=== PATIENT | female | born 1995 | race Caucasian/White ===

== ENCOUNTER 2022-03-20 02:21 | Emergency (ER) | payer BC, SELFPAY ==
[2022-03-20] VITALS (22 sets, daily range): BP systolic 97–147; BP diastolic 61–96; PULSE 63–90; RESP 13–26; TEMP 36.5–36.9; O2SAT 98–100
--- NOTE | ~2022-03-20 | XR_ITS ---
EXAMINATION: XR chest 2V DATE: 03/20/2022 03:28 INDICATION: Chest pain. TECHNIQUE: Frontal and lateral views of the chest were obtained. COMPARISON: None. FINDINGS: The chest demonstrates clear lungs without pneumonia, pleural effusion, or pneumothorax. Th e heart size is normal. IMPRESSION: 1. No acute cardiopulmonary disease. Reviewed, dictated and finalized at location A. AND CHEMICAL COORDINATOR
--- NOTE | 2022-03-20 02:27 | ECG_ITS ---
Measurements Intervals [place] Rate: 83 P: 50 AR: 123 QRS: 52 QRSD: 84 T: 42 QT: 348 QTc: 410 Interpretive Statements SINUS RHYTHM WITH SINUS ARRHYTHMIA INCOMPLETE RIGHT BUNDLE BRANCH BLOCK BORDERLINE ST ABNORMALITY- ANTEROLAT/INF LEADS BASELINE ARTIFACT- V3-V4 BORDERLINE ECG NO PREVIOUS ECG AVAILABLE FOR COMPARISON Electronically Signed On 03-20-2022 6:34:13 FRONT LINE SUPERVISOR by Alex Roman D.O.
[2022-03-20 02:51] LABS: Basophils Percent Auto 0.4 % (0.2-1.2); Eosinophils Absolute Auto 0.2 K/mm3 (0-0.3); Eosinophils Percent Auto 2.1 % (0-4.4); Hematocrit 39.3 % (37.0-47.0); Hemoglobin 13.3 g/dL (12.0-15.0); Immature Granulocyte Absolute 0.01 K/mm3 (0.00-0.031); Immature Granulocyte Percent A 0.1 % (0-0.5); Lymphocytes Percent Auto 32.7 % (18.3-44.2); Mean Corpuscular HGB Conc 33.8 g/dl (32-36); Mean Corpuscular Hemoglobin 31.7 pg (26-34); Mean Corpuscular Volume 93.6 fl (80-100); Mean Platelet Volume 10.2 fl (7.4-10.4); Monocytes Absolute Auto 0.5 K/mm3 (0.1-0.6); Monocytes Percent Auto 7.7 % (2.6-8.5); Platelet Count Result 292 k/mm3 (150-375); Red Cell Distribution Width 11.9 % (11.5-14.5)
[2022-03-20 03:01] LABS: Alanine Aminotransferase 18 U/L (6-35); Albumin Level 4.5 g/dL (3.5-5.1); Alkaline Phosphatase 57 U/L (38-126); Anion Gap 11 mmol/L (8-16); Aspartate Amino Transferase 33 U/L (14-36); Bilirubin,Total 0.3 mg/dL (0.2-1.3); Blood Urea Nitrogen 13 mg/dL (7-17); Calcium 9.2 mg/dL (8.4-10.2); Carbon Dioxide 26 mmol/L (22-30); Chloride 103 mmol/L (98-107); Estimated CRCL calculation 75 ml/min; Estimated Glomerular Filt Rate > 60; Glucose 109 mg/dL (65-110); Lipase 71 U/L (23-300); Potassium 3.3 mmol/L (3.4-5.0); Sodium 140 mmol/L (137-145)
--- NOTE | 2022-03-20 03:01 | PC.NURSE ---
Report received from MARINA Grullon. Assumed care of patient at this time.
[2022-03-20 03:12] LABS: INR 1.1; Prothrombin Time 14.1 Seconds (11.1-14.7)
[2022-03-20 03:13] LABS: Partial Thromboplastin Time 27.8 SECONDS (22.3-36.8); Troponin I < 0.012 ng/mL (0.000-0.034)
--- NOTE | 2022-03-20 03:26 | PC.NURSE ---
Patient in xray at this time.
--- NOTE | 2022-03-20 03:39 | ED.CHESTPAIN ---
HPI - Chest Pain General Chief Complaint: Chest Pain Stated Complaint: Chest pain Time Seen by Provider: 03/20/22 02:38 Source: patient and RN notes reviewed Mode of arrival: ambulatory Limitations: no limitations History of Present Illness HPI narrative: THis is a 27 year old female who presents for evaluation of chest pain. She states she woke up from her sleep with midsternal chest pain that she states radiated to her head. She told triage that she has chest pain with swallowing. She denies associated nausea, vomiting, cough, diaphoresis or sob. She denies fever or chills. She states she went to bed without any complaints. She has not taken any medication for her symptoms and her pain has improved. Related Data Home Medications Medication Instructions Recorded Confirmed sertraline 50 mg tablet mg 03/20/22 Allergies Allergy/AdvReac Type Severity Reaction Status Date / Time No Known Allergies Allergy Verified 03/20/22 04:29 Review of Systems Review of Systems: CONSTITUTIONAL: Denies fever, chills, or sweats. EYES: Denies visual changes, redness, or discharge. ENT: Denies rhinorrhea, congestion, sore throat, or otalgia. CARDIOVASCULAR: Denies palpitations, or edema. RESPIRATORY: Denies cough or dyspnea. GASTROINTESTINAL: Denies abdominal pain, nausea, vomiting, or diarrhea. GENITOURINARY: Denies dysuria or hematuria. SKIN: Denies rash or itching. MUSCULOSKELETAL: Denies back pain, joint pain, or myalgia. NEUROLOGIC: Denies headache, numbness, or weakness. PSYCHIATRIC: Denies anxiety or depression. PMFSH Past Medical History Medical History (Updated 03/20/22 @ 07:15 by Sheela Philippe MD) Patient denies medical problems Surgical History Surgical History (Updated 03/20/22 @ 03:46 by Sheela Philippe MD) No pertinent past surgical history Social History Social History (Updated 03/20/22 @ 03:47 by Sheela Philippe MD) Smoking status: Never smoker Exam Narrative: GENERAL: Well-appearing, well-nourished, and in no acute distress. HEAD: Normocephalic, atraumatic EYES: PERRLA and EOMI, conjunctiva clear without discharge THROAT:Mucous membranes moist, Oropharynx normal without erythema, exudate, peritonsillar swelling or fluctuance NECK: Supple, without lymphadenopathy or mass RESPIRATORY: No respiratory distress, Airway patent, Respirations non-labored, Clear to auscultation without rales, rhonchi or wheeze HEART: Regular rate and rhythm. No murmur heard. Normal peripheral pulses. ABDOMEN: Soft, nontender, nondistended, normal active bowel sounds. No masses. No rebound or guarding, No organomegaly. EXTREMITIES: No edema, normal strength with full range of motion. SKIN: Warm, dry, normal color without rash NEURO: Alert and oriented x3. CN 2-12 grossly intact. No focal deficits. PSYCH: Normal mood and affect. Course Reevaluation(s) Reevaluation #1: PAtient's pain resolved without any treatment. It appears to be non cardiac. I Discussed discharge plan and follow up . Date: 03/20/22 Time: 07:14 Vital Signs Vital signs: Vital Signs Temperature 98.4 F 03/20/22 02:27 Pulse Rate 90 03/20/22 02:27 Respiratory Rate 18 03/20/22 02:27 Blood Pressure 147/88 H 03/20/22 02:27 Pulse Oximetry 100 03/20/22 02:27 Oxygen Delivery Room Air 03/20/22 02:27 Temperature 97.7 F 03/20/22 04:30 Pulse Rate 70 03/20/22 06:30 Respiratory Rate 17 03/20/22 06:30 Blood Pressure 103/66 03/20/22 06:16 Pulse Oximetry 98 03/20/22 06:30 Oxygen Delivery Room Air 03/20/22 02:27 MDM - Chest Pain Lab Data Attestation: I reviewed the patient's lab results. Result diagrams: 03/20/22 02:46 03/20/22 02:46 Labs: Lab Results 03/20/22 03/20/22 03/20/22 Range/Units 02:46 02:46 02:46 WBC 7.0 (4.5-10.0) K/mm3 RBC 4.20 (4.2-5.4) M/mm3 Hgb 13.3 (12.0-15.0) g/dL Hct 39.3 (37.0-47.0) % MCV 93.6 (80-100) fl MCH 3
--- NOTE | 2022-03-20 04:33 | PC.NURSE ---
Patient declines toradol, states she feels better and her pain is only 1-2/10. ERP notified.
[2022-03-20 07:00] LABS: Troponin I < 0.012 ng/mL (0.000-0.034)
== END 2022-03-20 07:30 | disposition home or self-care (01) ==
PROVIDERS: Emergency Provider General Practice
DX: R07.89 Other chest pain (principal); I45.10 Unspecified right bundle-branch block; R94.31 Abnormal electrocardiogram [ECG] [EKG]
CPT/HCPCS: 36415; 71046; 80053; 83690; 84484; 85025; 85610; 85730; 93005; 99284

== ENCOUNTER 2023-04-07 15:30 | Observation (INO) | payer BC, SELFPAY ==
[2023-04-07] VITALS (74 sets, daily range): BP systolic 94–133; BP diastolic 56–104; PULSE 58–143; TEMP 36.6; O2SAT 80–100
[2023-04-07 16:07] LABS: Appearance Urine Cloudy (Clear); Bacteria Urine 3+ /hpf; Bilirubin Urine Negative (Negative); Blood Urine Negative (Negative); Color Urine Dark Yellow (Yellow); Glucose Urine UA Negative (Negative); Ketones Urine Trace mg/dL (Negative); Leukocyte Esterase Ur 2+ LEU/UL (Negative); Nitrate Urine Negative (Negative); Non Pathogenic Casts 0-2; Protein Urine 1+ mg/dL (Negative); RBC Urine 0-2 /hpf (0-2); Specific Grav Ur 1.029 (1.001-1.035); Squamous Epithelial Cell Urine Many /hpf (Few); WBC Urine 51-100 /hpf
[2023-04-07 16:14] LABS: Add Urine Microscopic? YES
[2023-04-07] MEDS: CEPHALEXIN 500 MG CAPSULE PO (16:58)
[2023-04-07] MEDS: TERBUTALINE SULFATE 1 MG/ML VIAL 0.25 MG SUB-Q (16:59)
--- NOTE | 2023-04-07 17:16 | OBADM ---
This patient, Sulema Garcia, admitted to the OB room [facility] for observation. Patient/family oriented to hospital policies and general routines including ID bracelet, bed and alarms, visiting hours, pain management, procedures, bathroom and other care routines, personal items, smoking policy, room service/diet, and visiting hours. Patient/Family are encouraged to report perceived risks to care and to ask questions if they do not understand what they are told or what they should do.
[2023-04-07] MEDS: NIFEdipine 10 MG CAPSULE PO (19:37)
--- NOTE | 2023-04-09 16:31 | PM.OBTRLD ---
OB - Triage/Final Diagnosis Visit Information Comments/Additional reasons for admission: I have assessed the risk for this patient, Sulema Garcia, and determined that she would benefit from observation care. Evaluation Laboratory results: Laboratory Tests 04/07/23 15:57 Urine Color Dark yellow Urine Appearance Cloudy H Urine pH 7.0 Ur Specific [place] 1.029 Urine Protein 1+ H Urine Glucose (UA) Negative Urine Ketones Trace H Ur Blood (Man) Negative Urine Nitrate Negative Urine Bilirubin Negative Urine Urobilinogen 1.0 Leukocyte Esterase Rfl 2+ H Urine RBC 0-2 Urine WBC 51-100 H Ur Squamous Epith Cells Many H Urine Bacteria 3+ H Urine Casts 0-2 Final Diagnosis (1) Abdominal pain affecting : Code(s): O26.899 - Other specified related conditions, unspecified trimester; R10.9 - Unspecified abdominal pain Status: Acute
== END 2023-04-07 22:25 | disposition home or self-care (01) ==
PROVIDERS: Admitting Provider Obstetrics & Gynecology; Visit Provider Obstetrics & Gynecology
DX: O26.899 Other specified pregnancy related conditions, unspecified trimester (principal); R10.9 Unspecified abdominal pain; Z3A.00 Weeks of gestation of pregnancy not specified
CPT/HCPCS: 81001; 87086; 87088; 96372; A9270; G0378; G0379; J3105

== ENCOUNTER 2023-04-11 07:32 | Inpatient (IN) | payer BC, SELFPAY ==
[2023-04-11] VITALS (205 sets, daily range): BP systolic 86–129; BP diastolic 49–90; PULSE 69–163; RESP 16–18; TEMP 36.4–37.4; O2SAT 84–100; BMI 29.3
--- NOTE | 2023-04-11 08:22 | LDADM ---
This patient, Sulema Garcia, was admitted to Labor/Delivery/Recovery 108 on 04/11/23 at 07:32. Plans for labor, pain management and were discussed with patient. Patient/family oriented to hospital policies and general routines including ID bracelet, bed and alarms, visiting hours, pain management, procedures, bathroom and other care routines, personal items, smoking policy, room service/diet and guest tray routines, infant security routines, and visiting hours. Patient/Family are encouraged to report perceived risks to care and to ask questions if they do not understand what they are told or what they should do. See OBIX for further documentation.
[2023-04-11] MEDS: AMPICILLIN 2 GM/NS 100 ML 2 GM/100 ML BAG IVPB (08:30)
[2023-04-11] MEDS: LACTATED RINGERS 1,000 ML 125 ML IV CONT ×3 (08:30→18:00)
[2023-04-11] MEDS: BETAMETHASONE SOD PHOS/ACETATE 30 MG/5 ML VIAL 12 MG IM (08:47)
[2023-04-11 08:59] LABS: Basophils Percent Auto 0.3 % (0.2-1.2); Eosinophils Absolute Auto 0.1 K/mm3 (0-0.3); Hemoglobin 11.5 g/dL (12.0-15.0); Immature Granulocyte Absolute 0.04 K/mm3 (0.00-0.031); Immature Granulocyte Percent A 0.4 % (0-0.5); Immature Platelet Fraction Pct 10.3 % (0.9-11.2); Lymphocytes Absolute Auto 1.38 K/mm3 (0.9-3.2); Lymphocytes Percent Auto 12.6 % (18.3-44.2); Mean Corpuscular HGB Conc 31.9 g/dl (32-36); Mean Corpuscular Hemoglobin 28.7 pg (26-34); Mean Corpuscular Volume 89.8 fl (80-100); Monocytes Absolute Auto 0.6 K/mm3 (0.1-0.6); Neutrophils Absolute Auto 8.8 K/mm3 (1.3-6.7); Neutrophils Percent Auto 80.7 % (45.5-73.1); Platelet Count Result 262 k/mm3 (150-375); Red Blood Count 4.01 M/mm3 (4.2-5.4); Red Cell Distribution Width 12.8 % (11.5-14.5); White Blood Count 10.9 K/mm3 (4.5-10.0)
--- NOTE | 2023-04-11 09:45 | WPDANESEPP ---
Anes - Eval Pre Procedure Procedure: labor pain management Date/Time: 04/11/23 09:45 Surgeon: Dash Preop Diagnosis: pain during labor Pre Op Diagnosis: contractions/leaking Patient Data Age: 28 Gender: F Height: 1.52 m Weight: 68.2 kg Last Vital Signs Pulse 101 H 04/11/23 09:33 BP 101/57 L 04/11/23 09:33 O2 Del Method Room Air 04/11/23 08:13 Allergies Allergy/AdvReac Type Severity Reaction Status Date / Time No Known Allergies Allergy Verified 03/28/23 15:27 Home Medications Medication Instructions Recorded Confirmed Type sertraline 50 mg tablet 25 mg PO DAILY 01/10/23 04/11/23 History vit no.133-ferrous 1 tablet PO DAILY 04/11/23 04/11/23 History fumarate 28 mg-folic acid 800 mcg tablet () Laboratory Tests 04/11/23 04/11/23 08:23 08:52 WBC 10.9 H K/mm3 (4.5-10.0) RBC 4.01 L M/mm3 (4.2-5.4) Hgb 11.5 L g/dL (12.0-15.0) Hct 36.0 L % (37.0-47.0) MCV 89.8 fl (80-100) MCH 28.7 pg (26-34) MCHC 31.9 L g/dl (32-36) RDW 12.8 % (11.5-14.5) Plt Count 262 k/mm3 (150-375) MPV 12.0 H fl (7.4-10.4) Immature Gran % (Auto) 0.4 % (0-0.5) Neut % (Auto) 80.7 H % (45.5-73.1) Lymph % (Auto) 12.6 L % (18.3-44.2) [place] % (Auto) 5.0 % (2.6-8.5) Eos % (Auto) 1.0 % (0-4.4) Baso % (Auto) 0.3 % (0.2-1.2) Lymph # (Auto) 1.38 K/mm3 (0.9-3.2) [place] # (Auto) 0.6 K/mm3 (0.1-0.6) Eos # (Auto) 0.1 K/mm3 (0-0.3) Baso # (Auto) 0.0 K/mm3 (0.0-0.1) Abs Immat Gran (auto) 0.04 H K/mm3 (0.00-0.031) Absolute Neuts (auto) 8.8 H K/mm3 (1.3-6.7) Absolute Nucleated RBC 0.0 K/mm3 (0.0-0.012) Nucleated RBC % 0.0 % (0.0-0.2) % Immature Plt Fraction 10.3 % (0.9-11.2) RPR Pending Blood Type O Positive Antibody Screen Negative Patient hx anesthesia problems: none Family hx anesthesia problems: none Results Review: All pre-operative results and documents have been reviewed as part of the pre-operative evaluation. FORMERLY [facility], [facility] Past Medical History Medical History Anxiety Patient denies medical problems Surgical History Surgical History No pertinent past surgical history Family History Family History Mother Bipolar 1 disorder Social History Social History Smoking status: Never smoker Second hand tobacco smoke exposure: No Alcohol intake: never Substance use: never Substance use type: does not use Lack of Transportation: No Lack of Food: Never True Current Housing: I Have Housing Concerned About Future Housing: No Difficulty Paying Gas/Electric Bills: No Difficulty Paying for Meds: No Currently Unemployed: No Education: High School Diploma/GED Difficulty w/ Childcare or Family Care: No Living arrangements: with family 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
[2023-04-11 11:29] LABS: HIV 1/2 Ab P24 Ag Result Negative (Negative)
--- NOTE | 2023-04-11 11:55 | PM.IMHP ---
H&P: HPI History of Present Illness Date/Time: 04/11/23 11:55 Chief Complaint: leakage of fluid Narrative: Sulema is a 28yo @ 35.1wks who presented to L&D with complaints of leakage of fluid since 636, clear in color. She has been having contractions on and off since this weekend. She reports good movement. No VB. No fever, chills. On arrival to L&D, she was found to be 3cm dilated and ana every 2-5 minutes. ROM + was positive. Her is complicated by: - Anxiety on zoloft - Right lateral inferior fibroid ~4.5cm -- ?has been getting serial growth scans Review of Systems Constitutional: Constitutional: Denies chills, Denies fever(s) and Denies headache(s) Eyes: Eyes: Denies change in vision ENT: Denies headache(s) Cardiovascular: Cardiovascular: Denies chest pain and Denies dyspnea Respiratory: Respiratory: Denies dyspnea Genitourinary: Genitourinary: Denies abnormal vaginal bleeding and Reports vaginal discharge Neurologic: Denies headache(s) Psychiatric: Psychiatric: Denies anxiety and Denies depression FORMERLY [facility] Past Medical History Medical History Anxiety Patient denies medical problems Surgical History Surgical History No pertinent past surgical history Family History Family History Mother Bipolar 1 disorder Social History Social History Smoking status: Never smoker Second hand tobacco smoke exposure: No Alcohol intake: never Substance use: never Substance use type: does not use Lack of Transportation: No Lack of Food: Never True Current Housing: I Have Housing Concerned About Future Housing: No Difficulty Paying Gas/Electric Bills: No Difficulty Paying for Meds: No Currently Unemployed: No Education: High School Diploma/GED Difficulty w/ Childcare or Family Care: No Living arrangements: with family 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 Gender identity (if verbalized by the patient): Female Sexual Orientation (if Verbalized by the Patient): Straight or Heterosexual Spiritual care concerns: No Meds Home Medications and Allergies Home Medications Medication Instructions Recorded Confirmed Type sertraline 50 mg tablet 25 mg PO DAILY 01/10/23 04/11/23 History vit no.133-ferrous 1 tablet PO DAILY 04/11/23 04/11/23 History fumarate 28 mg-folic acid 800 mcg tablet () Allergies Allergy/AdvReac Type Severity Reaction Status Date / Time No Known Allergies Allergy Verified 03/28/23 15:27 Vital Signs Vital Signs - 24 hr 04/11/23 08:25 04/11/23 08:30 04/11/23 08:51 Temperature Pulse Rate 96 90 89 Respiratory Rate Blood Pressure 121/83 114/74 116/79 Pulse Oximetry Oxygen Delivery 04/11/23 09:01 04/11/23 09:16 04/11/23 09:33 Temperature Pulse Rate 99 89 101 H Respiratory Rate Blood Pressure 116/84 102/68 101/57 L Pulse Oximetry Oxygen Delivery 04/11/23 09:46 04/11/23 09:50 04/11/23 09:51 Temperature 97.5 F L Pulse Rate 92 106 H Respiratory Rate 18 Blood Pressure 86/52 L 106/76 Pulse Oximetry 87 L Oxygen Delivery 04/11/23 09:54 04/11/23 09:59 04/11/23 08:13 Temperature Pulse Rate Respiratory Rate Blood Pressure Pulse Oximetry 84 L 96 Oxygen Delivery Room Air 04/11/23 10:02 04/11/23 10:04 04/11/23 10:07 Temperature Pulse Rate 93 90 Respiratory Rate Blood Pressure 111/69 120/73 Pulse Oximetry 96 Oxygen Delivery 04/11/23 10:09 04/11/23 10:10 04/11/23 10:12 Temperature Pulse Rate 91 97 Respiratory Rate Blood Pressure 112/70 119/69 Pulse Oximetry 99 Oxygen Delivery 04/11/23 10:13 04/11/23 10:14 1
--- NOTE | 2023-04-11 12:22 | WPDHPUPDATE1 ---
History and Physical Update Update Date/Time: 04/11/23 12:22 History and Physical has been reviewed, including an updated exam of the patient. There are NO changes in the patient's condition. Risks, benefits, and alternatives have been discussed and questions answered. Patient agrees to proceed with procedure.
[2023-04-11] MEDS: AMPICILLIN 1 GM/NS 50 ML 1 GM/50 ML BAG IVPB ×2 (12:35→16:40)
[2023-04-11 17:18] LABS: Rapid Plasma Reagin Non-Reactive (NonReactive)
[2023-04-11] MEDS: OXYTOCIN 30 UNITS/NS 500 ML 30 UNITS/500 ML BAG 6 UNITS IV CONT (19:38)
--- NOTE | 2023-04-11 20:56 | P.PCNOB_ITS ---
OB - Vaginal Delivery Note Procedure Delivery date: 04/11/23 Events: Premature Rupture of Membranes Delivery augmentation: Pitocin (when pushing only) Delivery monitor: External FHT and External Uterine Route of delivery: Laceration Description: Perineal - 2nd Degree Delivery repair: vicryl Specimen: Yes (placenta) Quantitative Blood Loss (ml): 300 Anesthesia type: Epidural Disposition: Floor Complications: No immediate complications [place] Baby Date of : 04/11/23 Time of : 20:31 Weeks of gestation at delivery: 35 (.1) Infant gender: Female Weight (pounds): 6 Weight (ounces): 6 presentation: vertex position: Other (direct OP) Placenta delivery description: Expressed Cord Vessel Description: 3 Vessels and Delayed Cord Clamping score one minute: 7 score five minutes: 9 Narrative: Sulema progressed to complete dilation and began pushing. Contractions were noted to be weak and therefore pitocin augmentation was started. She pushed for approximately 2-1/2 hours with good maternal effort. She delivered the head over intact perineum, direct OP. No nuchal cord was palpated. She easily delivered the 's shoulders and body without complication. The was immediately placed skin to skin. The pediatric team was present and stimulated and suctioned the baby's mouth and cry was heard. Delayed cord clamping was performed. The umbilical cord was then doubly clamped and cut. A segment of the cord was collected for cord gases. The remaining cord blood was collected for typing. With Pitocin running and gentle downward traction on the cord, the placenta delivered without complications. Bimanual massage was performed and good uterine tone with minimal bleeding was noted. She was examined and a second-degree perineal laceration was identified. It was repaired in the normal fashion using 2-0 Vicryl. Bimanual massage was once again performed and good uterine tone with minimal bleeding was noted. Her bladder was then drained via straight catheterization. Sponge, lap, instrument, and needle counts were correct at the end the procedure. Mom and baby were left bonding in the birthing suite in stable condition. [facility] Delivery Billing Delivery Delivery: Delivery Charge
[2023-04-11] MEDS: OXYTOCIN 30 UNITS/NS 500 ML 30 UNITS/500 ML BAG 125 UNITS IV CONT (21:07)
[2023-04-11] MEDS: IBUPROFEN 600 MG TABLET PO (21:56)
[2023-04-11] MEDS: BENZOCAINE 20% AER SPR (*SP) 56 GM CAN 1 SPRAY TOPICAL (21:57)
[2023-04-11] MEDS: WITCH HAZEL 40 PADS 1 PAD TOPICAL (21:57)
[2023-04-12] MEDS: IBUPROFEN 600 MG TABLET PO ×3 (05:15→17:15)
[2023-04-12] MEDS: ACETAMINOPHEN 325 MG TABLET 650 MG PO (05:15)
[2023-04-12 05:19] LABS: Hematocrit 28.7 % (37.0-47.0); Hemoglobin 9.3 g/dL (12.0-15.0)
--- NOTE | 2023-04-12 06:30 | PM.OBPNVD ---
OB - PN: Subj Subjective Date/time seen: 04/12/23 06:30 Narrative: PPD#1 Sulema reports doing well today. Her bleeding is adult care manager. Her pain is controlled. She is tolerating regular diet, voiding, passing gas, and ambulating without issues. She is breast feeding. OB - PN: Obj Data Labs 04/12/23 05:11 Labs: Laboratory Results - last 24 hr 04/11/23 04/11/23 04/11/23 08:23 08:52 09:26 WBC 10.9 H RBC 4.01 L Hgb 11.5 L Hct 36.0 L MCV 89.8 MCH 28.7 MCHC 31.9 L RDW 12.8 Plt Count 262 MPV 12.0 H Immature Gran % (Auto) 0.4 Neut % (Auto) 80.7 H Lymph % (Auto) 12.6 L [place] % (Auto) 5.0 Eos % (Auto) 1.0 Baso % (Auto) 0.3 Lymph # (Auto) 1.38 [place] # (Auto) 0.6 Eos # (Auto) 0.1 Baso # (Auto) 0.0 Abs Immat Gran (auto) 0.04 H Absolute Neuts (auto) 8.8 H Absolute Nucleated RBC 0.0 Nucleated RBC % 0.0 % Immature Plt Fraction 10.3 RPR Non-reactive HIV 1&2 Ab/P24 Ag 4thGn Negative Blood Type O Positive Antibody Screen Negative 04/12/23 05:11 WBC RBC Hgb 9.3 L Hct 28.7 L MCV MCH MCHC RDW Plt Count MPV Immature Gran % (Auto) Neut % (Auto) Lymph % (Auto) [place] % (Auto) Eos % (Auto) Baso % (Auto) Lymph # (Auto) [place] # (Auto) Eos # (Auto) Baso # (Auto) Abs Immat Gran (auto) Absolute Neuts (auto) Absolute Nucleated RBC Nucleated RBC % % Immature Plt Fraction RPR HIV 1&2 Ab/P24 Ag 4thGn Blood Type Antibody Screen OB - PN A/P Assessment and Plan (1) Normal vaginal delivery of first : Code(s): O80 - Encounter for full-term uncomplicated delivery Status: Acute Plan day: 1 Plan: routine care Time Spent With Patient Time: Total time spent is greater than 50% in coordination of care (as documented) at patient's floor/unit and/or counseling patient: Review of Systems Constitutional: Constitutional: Denies chills, Denies fever(s) and Denies headache(s) Eyes: Eyes: Denies change in vision ENT: Denies dizziness and Denies headache(s) Cardiovascular: Cardiovascular: Denies chest pain, Denies palpitations and Denies dyspnea Respiratory: Respiratory: Denies cough and Denies dyspnea Gastrointestinal: Gastrointestinal: Denies nausea and Denies vomiting Neurologic: Denies dizziness and Denies headache(s) Endocrine: Endocrine: Denies palpitations Exam Const: General: cooperative, healthy appearing, comfortable and no acute distress Orientation/consciousness: patient oriented x3 Resp: Effort & Inspection: normal respiratory effort Auscultation: clear to auscultation bilaterally Cardio: Rate: regular rate GI: Inspection: non-distended GI Palp: No abdominal tenderness and Yes Soft to palpation Auscultation: normal bowel sounds : Other: fundus firm Skin: General skin exam: normal color Neuro: General: patient oriented x3 Extrem: General: normal to inspection Psych: Appearance: grossly normal Affect: normal affect Attitude: cooperative
[2023-04-12 07:50] VITALS: BP 98/48; PULSE 78; RESP 16; TEMP 36.9; O2SAT 100
[2023-04-12] MEDS: POLYSACCHARIDE IRON COMPLEX 150 MG CAPSULE PO ×2 (11:48→17:15)
[2023-04-12] MEDS: SERTRALINE HCL 25 MG TABLET PO (11:48)
[2023-04-12] MEDS: MULTIVIT/MIN/PREN/FOL AC/IRON TABLET 1 TAB PO (11:48)
[2023-04-12] MEDS: DOCUSATE SODIUM 100 MG CAPSULE PO ×2 (11:48→17:15)
[2023-04-12 12:10] VITALS: BP 99/60; PULSE 82; RESP 16; TEMP 36.9; O2SAT 99
--- NOTE | 2023-04-12 12:27 | PC.NURSE ---
[id number] Re-introductions were made as we have previously met at the class, then consulted with patient to assess needs related to . Mother led the conversation with her?plans to feed?her infant, the?experience so far and is effectively pumping without pain as we speak. Encouraged understanding of the benefits of skin to skin (demonstrating unwrapping and placing upright on her chest), stimulating with massage touch, changing positions to encourage wakefulness, how to watch for early feeding cues, responsive feeding, feeding on demand (aiming for 8-12 times in 24 hours, about every 2-3 hours), milk production, building/maintaining a milk supply, duration of feeding, signs of adequate intake/output and how to record on the feeding sheet. Reviewed keeping hands, pump, clothing clean and dry that touch her breast. Mother voiced understanding of skin to skin, stimulating with massage touch, responsive feedings, talking to infant to encourage if it has been 2 -2.5 hours since the start of the last , to call if infant does not latch, or if there is discomfort with . Inpatient/outpatient resources provided with feeding sheet, name written on the communication board, and the mom/baby guide. Parents voiced understanding of information, demonstrated learning and will call if there is a request for assistance. Reported to the Primary RN.
--- NOTE | 2023-04-12 13:47 | WPDANLDPN2 ---
Anes-Prog Note L&D Date/Time: 04/12/23 13:47 Neuro status: Neuro function grossly intact. Vital Signs: Last Vital Signs Temp 36.9 C 04/12/23 07:50 Pulse 78 04/12/23 07:50 Resp 16 04/12/23 07:50 BP 98/48 L 04/12/23 07:50 Pulse Ox 100 04/12/23 07:50 O2 Del Method Room Air 04/11/23 08:13 Pain score (VAS): 0 I/O: Intake & Output 04/11/23 04/12/23 04/12/23 23:59 07:59 15:59 Intake Total 1500 500 Output Total 300 Balance 1200 500 Patient feedback: Patient satisfied with anesthetic care.
[2023-04-12 17:15] VITALS: BP 93/53; PULSE 80; RESP 16; TEMP 36.9; O2SAT 98
[2023-04-12 20:00] VITALS: BP 101/59; PULSE 71; RESP 16; TEMP 37; O2SAT 99
--- NOTE | 2023-04-13 07:45 | P.DS_ITS ---
DS: Admitting Diagnosis Discharge Date 04/13/23 Admitting Diagnosis premature rupture of membranes DS: Discharge Diagnosis Discharge Diagnosis (1) Normal vaginal delivery of first : Code(s): O80 - Encounter for full-term uncomplicated delivery Status: Acute OB - DS: Summary Hospital Course Hospital Course: 28-year-old presented at 35 weeks premature rupture of membranes. Patient's labor progressed and she had a normal spontaneous vaginal delivery. Patient's course was uncomplicated. She was discharged on day 2. OB Procedures : None OB Procedures Intrapartum: Spontaneous Vag Delivery OB Procedures: : None Peripartum Data Laceration Description: Perineal - 2nd Degree Status at Discharge Functional status at discharge: independent ambulation Overall status at discharge: patient is back to baseline Time Spent with Patient Time attestation: Total time spent providing and/or coordinating discharge services: Time spent: Less than 30 minutes Exam Const: General: comfortable and no acute distress Resp: Effort & Inspection: normal respiratory effort Auscultation: clear to auscultation bilaterally Cardio: Rate: regular rate GI: GI Palp: Yes Soft to palpation Auscultation: normal bowel sounds Other: Fundus firm below umbilicus Psych: Appearance: grossly normal Mental Status: mental status grossly normal Affect: normal affect DS: Data Data Completed and Pending Pending studies at discharge: Pending at discharge 04/11/23 20:42 Surgical [PTH] Routine Discharge Plan Discharge Discharging Clinician: Emigdio Green Patient Disposition: Home, Self-Care Activity: as tolerated and pelvic rest Diet: regular Patient Instructions: Antibiotic Form, Vaginal Delivery (DC) Stand Alone Forms: General Discharge Information Follow-up/Referrals: Augustina Bowling MD [Physician] - Discharge Medications: New acetaminophen 500 mg tablet 500 mg PO Q6H PRN (Reason: pain) Qty: 30 0RF ibuprofen 600 mg tablet 600 mg PO Q6H PRN (Reason: pain) Qty: 30 0RF Continued 28-800 mg-mcg Tablet 1 tablet PO DAILY sertraline 50 mg tablet 25 mg PO DAILY Date of admission: 04/11/23 07:32 Primary Care Provider: PHYSICIAN,ASSISTANT SOFTBALL COACH Admitting Provider: Augustina Bowling Attending physician on admission: Augustina Bowling Condition: Stable
[2023-04-13 09:06] VITALS: BP 104/54; PULSE 77; RESP 16; TEMP 36.7; O2SAT 97
--- NOTE | 2023-04-13 16:56 | PC.NURSE ---
1415 Introductions were made, then consulted with patient to assess needs related to . Mother led the conversation with her?plans to feed?her and the?experience so far. Encouraged understanding of the benefits of skin to skin (demonstrating unwrapping infant and placing upright on her chest), stimulating with massage touch, changing positions to encourage wakefulness, how to watch for early feeding cues, responsive feeding, feeding on demand (aiming for 8-12 times in 24 hours, about every 2-3 hours), milk production, building/maintaining a milk supply, duration of feeding, signs of adequate intake/output and how to record on the feeding sheet. Mother works well with her with encouragement and education. Reviewed positioning and ear, shoulder, hip alignment, supporting the breast to facilitate a deep latch, asymmetrical latch (off-center), leading with the chin with a big, open, wide gape and body close to mother. Infant latched optimally to both breasts in football position. Education given to the mother of how to visualize the suckling (with good rocking jaw motion), swallows (dropping of the lower jaw) and how to listen for drinking at the breast (the ka sound). was able to maintain latch without pain to mother protecting the nipple with optimal positioning and latching. Reviewed comfort measures of healing with a warm, wet washcloth to rinse breast, then leave open to air-dry, good handwashing when or touching the breast/nipples to prevent infection. Mother voiced understanding of skin to skin, stimulating with massage touch, responsive feedings, hand expressed colostrum, talking to to encourage if it has been 2 -2.5 hours since the start of the last , to call if does not latch, or if there is discomfort with . Resources used for education were facilitated with the mom and baby guide, Inpatient resources provided with business card, feeding sheet, name written on the communication board, and the mom/baby guide. Parents voiced understanding of information, demonstrated learning and will call if there is a request for assistance. Reported to the Primary RN.
--- NOTE | 2023-04-13 19:10 | PC.NURSE ---
Patient made a no care bed on 04/13/23 at 1910.
[2023-04-16 11:07] VITALS: BP 104/73; PULSE 68; RESP 18; TEMP 37; O2SAT 99
--- NOTE | 2023-04-16 14:00 | PC.NURSE ---
1150 Upon entering the room, mother was feeding infant in preparation for discharge. Mother led the conversation with her experience so far, plan to feed her , and her ability to independently latch optimally without discomfort. Reminded mother to use good handwashing technique to prevent infection. Mother is feeding appropriately for growth of and understands stimulating to eat if needed. Infant has had appropriate feedings in the last 24 hours meets the outcomes for weight, output, blood sugar and jaundice at this time. Encouraged parents to continue to feed baby frequently (approximately/at least every 2-3 hours), and utilize light properly until baby is seen by operator maintainer/doctor to assist with lowering bilirubin levels further. Mother states she is confident to continue effectively her infant at home, when to call for assistance, denies any additional assistance or education at this time. Reinforced understanding of milk production, transition of milk, signs of adequate intake, transition of stool, prevention/relief of engorgement, plugged ducts, mastitis, responsive watching for feeding cues, the different methods of stimulating to breastfeed 1-3 hours after the start of the last feeding, community resources, medication information reviewed per [facility] and when to call a provider using the resource of the mom and baby guide. Mother voiced understanding of the education shared. Reported to the Primary RN.
== END 2023-04-13 19:10 | disposition home or self-care (01) | DRG 805 ==
LOC: ANHOB2 04-13 19:04 → ANHLDR 04-16 08:01 → ANHOB2 04-16 08:01 → ANHOBPP 04-16 08:01
PROVIDERS: Admitting Provider Obstetrics & Gynecology; Visit Provider Student in an Organized Health Care Education/Training Program
DX: O42.013 Preterm premature rupture of membranes, onset of labor within 24 hours of rupture, third trimester (principal); O60.14X0 Preterm labor third trimester with preterm delivery third trimester, not applicable or unspecified; Z37.0 Single live birth; Z3A.35 35 weeks gestation of pregnancy; O70.1 Second degree perineal laceration during delivery; O99.344 Other mental disorders complicating childbirth; F41.9 Anxiety disorder, unspecified; O34.13 Maternal care for benign tumor of corpus uteri, third trimester; D25.9 Leiomyoma of uterus, unspecified
CPT/HCPCS: 36415; 84112; 85014; 85018; 85025; 85055; 86592; 86703; 86850; 86900; 86901; 88307; A9270; G0432; J0290; J0702; J2590; J2795; J7120

== ENCOUNTER 2023-06-22 10:11 | Emergency (ER) | payer BC, SELFPAY ==
[2023-06-22 10:36] VITALS: BP 111/75; PULSE 98; RESP 16; TEMP 36.7; O2SAT 100
[2023-06-22 10:39] LABS: Basophils Percent Auto 0.7 % (0.2-1.2); Eosinophils Absolute Auto 0.1 K/mm3 (0-0.3); Hematocrit 40.9 % (37.0-47.0); Hemoglobin 13.2 g/dL (12.0-15.0); Immature Granulocyte Absolute 0.01 K/mm3 (0.00-0.031); Immature Granulocyte Percent A 0.2 % (0-0.5); Lymphocytes Absolute Auto 1.24 K/mm3 (0.9-3.2); Lymphocytes Percent Auto 21.3 % (18.3-44.2); Mean Corpuscular HGB Conc 32.3 g/dl (32-36); Mean Corpuscular Hemoglobin 29.1 pg (26-34); Mean Corpuscular Volume 90.3 fl (80-100); Mean Platelet Volume 10.1 fl (7.4-10.4); Monocytes Absolute Auto 0.4 K/mm3 (0.1-0.6); Monocytes Percent Auto 6.2 % (2.6-8.5); Neutrophils Absolute Auto 4.1 K/mm3 (1.3-6.7); Neutrophils Percent Auto 70.6 % (45.5-73.1); Platelet Count Result 329 k/mm3 (150-375); Red Blood Count 4.53 M/mm3 (4.2-5.4); Red Cell Distribution Width 13.5 % (11.5-14.5); White Blood Count 5.8 K/mm3 (4.5-10.0)
--- NOTE | 2023-06-22 10:50 | PC.NURSE ---
Pt to room 15. Pts belongings removed. Asked to keep breast pump, breast pump to be placed in secured area until needed. Pt states 10 years ago was hospitalized for depression. at bedside & supportive. Pt informed she will medically cleared by EMD, evaluated by Crisis, plan of care to de determined. Pt & spouse voice understanding
[2023-06-22 10:52] LABS: Appearance Urine Clear (Clear); Bilirubin Urine Negative (Negative); Blood Urine Negative (Negative); Color Urine Yellow (Yellow); Glucose Urine UA Negative (Negative); Ketones Urine Negative (Negative); Leukocyte Esterase Ur Negative LEU/UL (Negative); Nitrate Urine Negative (Negative); Protein Urine Negative (Negative); Specific Grav Ur 1.019 (1.001-1.035); Urobilinogen Urine 0.2 mg/dL (<2.0); pH Urine 5.5 (5.0-9.0)
[2023-06-22 10:53] LABS: Add Urine Microscopic? NO
[2023-06-22 10:55] LABS: Ethanol < 10 mg/dL (<10)
[2023-06-22 10:57] LABS: Alanine Aminotransferase 39 U/L (6-35); Albumin Level 4.3 g/dL (3.5-5.1); Alkaline Phosphatase 73 U/L (38-126); Anion Gap 7 mmol/L (8-16); Aspartate Amino Transferase 38 U/L (14-36); Bilirubin,Total 0.5 mg/dL (0.2-1.3); Blood Urea Nitrogen 11 mg/dL (7-17); Calcium 9.8 mg/dL (8.4-10.2); Carbon Dioxide 27 mmol/L (22-30); Chloride 104 mmol/L (98-107); Estimated Glomerular Filt Rate > 60; Glucose 103 mg/dL (65-110); Potassium 3.9 mmol/L (3.4-5.0); Sodium 138 mmol/L (137-145)
[2023-06-22 11:12] LABS: SARS-CoV-2 RNA PCR Negative (Negative)
--- NOTE | 2023-06-22 11:22 | ED.PSYCH ---
HPI - Psych General Chief Complaint: Psychiatric Symptoms Stated Complaint: thoughts of self harm Time Seen by Provider: 06/22/23 10:43 Source: patient Mode of arrival: ambulatory Limitations: no limitations History of Present Illness HPI Narrative: Patient is a 28-year-old female who presents the ED with her with report of thoughts of self-harm. Patient reports she is 10 weeks . Reports history of depression & anxiety and is currently on Zoloft. She does not regularly see a counselor or psychiatrist. She states over the last couple of weeks, she has been having intermittent thoughts of self harm. She states she has had thoughts of possibly falling down her stairs and leaving her baby alone. Has had anxiety about something happening to her baby. States she does not want to act on these thoughts, does not want to hurt herself or anyone else, but the thoughts have been scaring her and she is scared they are going to occur. Reports remote hx of self harm in childhood. Denies HI. Denies any other concerns. Related Data Home Medications Medication Instructions Recorded Confirmed sertraline 50 mg tablet 25 mg PO DAILY 01/10/23 05/09/23 vit no.133-ferrous 1 tablet PO DAILY 04/11/23 05/09/23 fumarate 28 mg-folic acid 800 mcg tablet () Allergies Allergy/AdvReac Type Severity Reaction Status Date / Time No Known Allergies Allergy Verified 06/22/23 11:02 Review of Systems Review of Systems: CONSTITUTIONAL: Denies fever, chills, or sweats. CARDIOVASCULAR: Denies chest pain. RESPIRATORY: Denies dyspnea. GASTROINTESTINAL: Denies abdominal pain, nausea, vomiting NEUROLOGIC: Denies headache, dizziness, numbness, or weakness. PSYCHIATRIC: see HPI All systems reviewed & are unremarkable except as noted in HPI and below PMFSH Past Medical History Medical History Anxiety Patient denies medical problems Surgical History Surgical History No pertinent past surgical history Family History Family History Mother Bipolar 1 disorder Social History Social History Smoking status: Never smoker Second hand tobacco smoke exposure: No Alcohol intake: never Substance use: never Substance use type: does not use Do You Feel Safe in your Home?: Yes Lack of Transportation: No Lack of Food: Never True Current Housing: I Have Housing Concerned About Future Housing: No Difficulty Paying Gas/Electric Bills: No Difficulty Paying for Meds: No Currently Unemployed: No Education: High School Diploma/GED Difficulty w/ Childcare or Family Care: No Living arrangements: with family 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 Gender identity (if verbalized by the patient): Female Sexual Orientation (if Verbalized by the Patient): Straight or Heterosexual Spiritual care concerns: No Exam Narrative: GENERAL: Well appearing, well-nourished, non-toxic, in no acute distress. HEAD: Normocephalic, atraumatic. RESPIRATORY: Airway patent, respirations nonlabored. Clear to auscultation bilaterally, no rales, rhonchi, wheezing. CARDIOVASCULAR: Regular rate and rhythm. MUSCULOSKELETAL: Moves all extremities. No gross deformities. SKIN: Warm, dry, normal color. NEURO: A&O X3. Speech clear. Cranial nerves II-XII grossly intact. Steady gait. No ataxic movements. PSYCHIATRIC: Depressed mood. Good insight into thoughts and behaviors. Normal interaction. Course Vital Signs Vital signs: Vital Signs Temperature 98.0 F 06/22/23 10:36 Pulse Rate 98 06/22/23 10:36 Respiratory Rate 16 06/22/23 10:36 Blood Pressure 111/75 06/22/23 10:36 Pulse Oximetry 100 06/22/23 10:36 Oxygen De
[2023-06-22 11:23] LABS: Thyroid Stimulating Hormone Reflex < 0.015 uIU/mL (0.465-4.68)
[2023-06-22 11:41] LABS: Amphetamine Screen Urine Negative (Negative); Barbiturate Screen Urine Negative (Negative); Benzodiazepines Screen Urine Negative (Negative); Cannabinoid Screen Urine Negative (Negative); Cocaine Screen Urine Negative (Negative); Methadone Screen Urine Negative (Negative); Opiate Screen Urine Negative (Negative); Phencyclidine Screen Urine Negative (Negative)
[2023-06-22 12:01] LABS: Free T4 Free Thyroxine Reflex 2.35 ng/dL (0.78-2.19)
--- NOTE | 2023-06-22 12:38 | PC.NURSE ---
Continue to wait for Crisis. Pt resting with at bedside.
--- NOTE | 2023-06-22 14:08 | PC.NURSE ---
Crisis assessment of pt is to develop a safety plan & supply support for pt at home. Waiting on resources in order to discharge pt
--- NOTE | 2023-06-22 14:38 | PC.NURSE ---
Waiting on return call from Dr. Herrera pts PMD.
[2023-06-22 15:00] VITALS: BP 126/77; PULSE 67; RESP 15; TEMP 36.9; O2SAT 100
== END 2023-06-22 15:01 | disposition home or self-care (01) ==
PROVIDERS: Emergency Medicine; Emergency Provider Physician Assistant; PCP Family Medicine
DX: R45.88 Nonsuicidal self-harm (principal); F41.9 Anxiety disorder, unspecified; R94.6 Abnormal results of thyroid function studies; Z20.822 Contact with and (suspected) exposure to COVID-19
CPT/HCPCS: 36415; 80053; 80307; 81003; 81025; 84439; 84443; 85025; 87635; 99284